=== PATIENT | female | born 1945 | race Caucasian/White ===

== ENCOUNTER 2017-06-07 16:42 | Inpatient (IN) | payer MEDICARE ==
[~2017-06-07] VITALS: Ht 160 cm; Wt 80.7 kg
[2017-06-07] MEDS ORDERED: IPRATROPIUM/ALBUTEROL SULFATE 3 ML SOLUTION IH ONE (17:02)
[2017-06-07] MEDS ORDERED: METHYLPREDNISOLONE SOD SUCC 125MG/2ML VIAL ONE (17:03)
[2017-06-07] MEDS ORDERED: ASPIRIN 81MG TAB.CHEW ONE (17:03)
[2017-06-07 17:07] LABS: BASOPHILS % (AUTO) 0.2 % (0.0-5.0); EOSINOPHILS % (AUTO) 0.1 % (0.0-8.0); HEMATOCRIT 52.7 % (36-48); LYMPHOCYTES % (AUTO) 5.1 % (21.0-51.0); MEAN CORPUSCULAR HEMOGLOBIN 29.8 pg (27.0-33.0); MONOCYTES % (AUTO) 7.2 % (3.0-13.0); NEUTROPHILS % (AUTO) 87.4 % (40.0-77.0); NUCLEATED RED BLOOD CELLS 0.1 % (0.0-0.19); PLATELET COUNT (AUTO) 335 K/uL (130-400); RED BLOOD CELL COUNT(AUTO) 5.67 MIL/uL (4.00-5.50); RED CELL DISTRIBUTION WIDTH 15.9 % (11.0-15.5); WHITE BLOOD COUNT (AUTO) 6.8 K/uL (4.8-10.8)
[2017-06-07 17:16] LABS: ABG BASE EXCESS -1.6 mmol/L (-2.0-3.0); ABG HCO3 29.2 mmol/L (21.0-28.0); ABG OXYGEN SATURATION 99.5 % (95.0-99.0); ABG PCO2 80 mmHg (32-45)
[2017-06-07 17:18] LABS: CARBON DIOXIDE 29 mmol/L (21-32); CHLORIDE 98 mmol/L (101-111); CREATININE 0.9 mg/dL (0.5-1.5); GLOMERULAR FILTR. RATE CALC 66 mL/min (>60); GLUCOSE,RANDOM 150 mg/dL (70-105); POTASSIUM 5.9 mmol/L (3.5-5.1); SODIUM SERUM 131 mmol/L (136-145); UREA NITROGEN, BLOOD 24 mg/dL (7-18)
[2017-06-07 17:20] LABS: INR 1.22 (0.85-1.15); PROTHROMBIN TIME 12.8 SEC (9.6-11.6)
[2017-06-07 17:37] LABS: ALANINE AMINOTRANSFERASE 85 U/L (12-78); ALBUMIN 2.3 g/dL (3.5-5.0); ASPARTATE AMINOTRANSFERASE 40 U/L (10-37); BILIRUBIN,TOTAL 0.4 mg/dL (0.2-1.0); CREATINE KINASE MB 1.2 ng/mL (0.5-3.6); CREATINE KINASE, TOTAL 39 U/L (21-232); MYOGLOBIN 53 ng/mL (10-92); TOTAL PROTEIN, SERUM 7.7 g/dL (6.0-8.3); TROPONIN I < 0.04 ng/mL (0.00-0.06)
[2017-06-07 18:06] LABS: APPEARANCE,URINE Cloudy (CLEAR); BILIRUBIN,URINE Small (NEGATIVE); COLOR,URINE Dark Yellow (YELLOW); GLUCOSE, URINE (UA) Negative (NEGATIVE); KETONES,URINE Negative (NEGATIVE); LEUKOCYTE ESTERASE ,URINE Negative (NEGATIVE); NITRATE,URINE Negative (NEGATIVE); OCCULT BLOOD,URINE Trace (NEGATIVE); PROTEIN,URINE POS 1+ (NEGATIVE)
[2017-06-07 18:14] LABS: BACTERIA,URINE Many /HPF (None Seen); RBC,URINE 0-1 /HPF (0-1); WBC,URINE 0-1 /HPF (0-1)
[2017-06-07 18:15] LABS: HYALINE CASTS, URINE 0-1 /LPF (0-1 /LPF)
[2017-06-07] MEDS ORDERED: FUROSEMIDE 10 MG/ML 4ML VIAL ONE (19:14)
[2017-06-07] MEDS ORDERED: AZITHROMYCIN 500MG+NS 250ML 250 ML IV ONE (19:50)
[2017-06-07] MEDS ORDERED: LEVOFLOXACIN 500 MG/D5W 100 ML 100 ML ONE (19:50)
[2017-06-07] MEDS ORDERED: LEVOFLOXACIN 500 MG/D5W 100 ML 100 ML IV SCH (21:15)
[2017-06-07] MEDS ORDERED: ACETAMINOPHEN 325 MG TAB PO PRN (21:15)
[2017-06-07] MEDS: METHYLPREDNISOLONE SOD SUCC 125MG/2ML VIAL IVP SCH (21:15)
[2017-06-07] MEDS ORDERED: ONDANSETRON HCL 4 MG/2 ML VIAL IV PRN (21:15)
[2017-06-07] MEDS ORDERED: AZITHROMYCIN 500MG+NS 250ML 250 ML IV SCH (21:15)
[2017-06-07] MEDS ORDERED: MORPHINE SULFATE 2 MG/ML 1ML SYG IV PRN (21:15)
[2017-06-07] MEDS ORDERED: METHYLPREDNISOLONE SOD SUCC 40MG/ML 1ML ONE (21:50)
[2017-06-07] MEDS ORDERED: VANCOMYCIN PROTOCOL PER PHARMACY IV SCH (23:15)
[2017-06-07] MEDS ORDERED: PHARMACY COMMUNICATION MISC SCH (23:30)
[2017-06-07] MEDS: MEROPENEM 1 GM VIAL IVP SCH (23:30)
[2017-06-07] MEDS ORDERED: MEROPENEM 1 GM VIAL ONE (23:42)
[2017-06-07] MEDS ORDERED: WATER FOR INJECTION,STERILE 20 ML VIAL ONE (23:43)
[2017-06-08] VITALS (11 sets, daily range): BP systolic 96–140; BP diastolic 47–104
[2017-06-08] MEDS ORDERED: VANCOMYCIN 2 GM in SODIUM CHLORIDE 0.9% 500ML 500 ML IV SCH ×2
[2017-06-08] MEDS: IPRATROPIUM/ALBUTEROL SULFATE 3 ML SOLUTION IH SCH ×5 (00:08→23:08)
[2017-06-08] MEDS ORDERED: MORPHINE SULFATE 2 MG/ML 1ML SYG ONE ×2 (00:27→05:12)
[2017-06-08] MEDS ORDERED: METHYLPREDNISOLONE SOD SUCC 125MG/2ML VIAL ONE (05:12)
[2017-06-08] MEDS: METHYLPREDNISOLONE SOD SUCC 125MG/2ML VIAL IVP SCH ×3 (05:15→22:02)
[2017-06-08 06:17] LABS: BASOPHILS % (AUTO) 0.1 % (0.0-5.0); EOSINOPHILS % (AUTO) 0.1 % (0.0-8.0); HEMATOCRIT 51.4 % (36-48); LYMPHOCYTES % (AUTO) 2.6 % (21.0-51.0); MEAN CORPUSCULAR HEMOGLOBIN 29.8 pg (27.0-33.0); MEAN CORPUSCULAR HGB CONC 31.4 g/dL (32.0-36.0); MEAN CORPUSCULAR VOLUME 94.8 fL (79-99); MONOCYTES % (AUTO) 1.3 % (3.0-13.0); NEUTROPHILS % (AUTO) 95.9 % (40.0-77.0); NUCLEATED RED BLOOD CELLS 0.1 % (0.0-0.19); PLATELET COUNT (AUTO) 361 K/uL (130-400); RED BLOOD CELL COUNT(AUTO) 5.43 MIL/uL (4.00-5.50); WHITE BLOOD COUNT (AUTO) 8.7 K/uL (4.8-10.8)
[2017-06-08 06:32] LABS: ALBUMIN 2.3 g/dL (3.5-5.0); BILIRUBIN,TOTAL 0.4 mg/dL (0.2-1.0); CREATININE 1.2 mg/dL (0.5-1.5); MAGNESIUM 2.2 mg/dL (1.80-2.40); PHOSPHORUS 5.9 mg/dL (2.5-4.9); POTASSIUM 5.7 mmol/L (3.5-5.1); TOTAL PROTEIN, SERUM 7.4 g/dL (6.0-8.3)
[2017-06-08] MEDS ORDERED: COMPOUND IV REFRIGERATED 1 EACH IVSOLN MISC PRN (06:45)
[2017-06-08] MEDS ORDERED: IPRATROPIUM/ALBUTEROL SULFATE 3 ML SOLUTION IH ONE (06:46)
[2017-06-08 07:11] LABS: B-TYPE NATRIURETIC PEPTIDE 2870 pg/mL (0-100)
[2017-06-08 07:25] LABS: ABG BASE EXCESS -3.4 mmol/L (-2.0-3.0); ABG HCO3 28.1 mmol/L (21.0-28.0); ABG PCO2 85 mmHg (32-45)
[2017-06-08 07:34] LABS: BAND NEUTROPHILS % (MANUAL) 1 % (0-2); LYMPHOCYTES % (MANUAL) 1 % (22-44); MAN.DIFF COMMENT-IMPRESSION MANUAL DIFFERENTIAL; PLATELET MORPHOLOGY COMMENT ADEQUATE; SEGMENTED NEUTROPHILS % 98 % (40-70)
[2017-06-08] MEDS: FUROSEMIDE 10 MG/ML 4ML VIAL IVP SCH ×2 (09:04→22:02)
[2017-06-08] MEDS: VANCOMYCIN 1.25 GM in SODIUM CHLORIDE 0.9% 250 ML IV SCH (09:05)
[2017-06-08] MEDS: MEROPENEM 1 GM VIAL IVP SCH ×2 (11:13→22:21)
[2017-06-08] MEDS: ENOXAPARIN SODIUM 40 MG/0.4 ML SYRINGE SQ SCH (13:34)
[2017-06-08] MEDS: SODIUM POLYSTYRENE SULFONATE 15 GM/60 ML ML PO SCH (13:34)
[2017-06-08] MEDS: LEVOFLOXACIN 500 MG/D5W 100 ML 100 ML IV SCH (16:32)
[2017-06-08] MEDS: BUDESONIDE 0.5 MG/2 ML INH IH SCH (19:21)
[2017-06-08] MEDS: OSELTAMIVIR PHOSPHATE 75 MG CAP PO SCH (22:02)
[2017-06-09] VITALS (7 sets, daily range): BP systolic 99–127; BP diastolic 52–78
[2017-06-09 04:12] LABS: ABG BASE EXCESS 3.5 mmol/L (-2.0-3.0); ABG HCO3 33.7 mmol/L (21.0-28.0); ABG OXYGEN SATURATION 92.6 % (95.0-99.0); ABG PCO2 79 mmHg (32-45)
[2017-06-09 04:37] LABS: HEMATOCRIT 48.4 % (36-48); MEAN CORPUSCULAR VOLUME 93.7 fL (79-99); NUCLEATED RED BLOOD CELLS 0.1 % (0.0-0.19); PLATELET COUNT (AUTO) 297 K/uL (130-400); RED BLOOD CELL COUNT(AUTO) 5.17 MIL/uL (4.00-5.50); RED CELL DISTRIBUTION WIDTH 15.7 % (11.0-15.5); WHITE BLOOD COUNT (AUTO) 6.8 K/uL (4.8-10.8)
[2017-06-09] MEDS: METHYLPREDNISOLONE SOD SUCC 125MG/2ML VIAL IVP SCH ×3 (05:09→21:52)
[2017-06-09 05:14] LABS: ALBUMIN 2.2 g/dL (3.5-5.0); BILIRUBIN,TOTAL 0.4 mg/dL (0.2-1.0); CREATININE 1.2 mg/dL (0.5-1.5); PHOSPHORUS 4.7 mg/dL (2.5-4.9); POTASSIUM 4.6 mmol/L (3.5-5.1); TOTAL PROTEIN, SERUM 6.9 g/dL (6.0-8.3)
[2017-06-09] MEDS: IPRATROPIUM/ALBUTEROL SULFATE 3 ML SOLUTION IH SCH ×3 (06:04→18:40)
[2017-06-09] MEDS: VANCOMYCIN 1.25 GM in SODIUM CHLORIDE 0.9% 250 ML IV SCH (06:45)
[2017-06-09] MEDS: OSELTAMIVIR PHOSPHATE 75 MG CAP PO SCH ×2 (08:35→21:52)
[2017-06-09] MEDS: FUROSEMIDE 10 MG/ML 4ML VIAL IVP SCH ×2 (08:35→21:52)
[2017-06-09] MEDS: ENOXAPARIN SODIUM 40 MG/0.4 ML SYRINGE SQ SCH (08:41)
[2017-06-09] MEDS: MEROPENEM 1 GM VIAL IVP SCH (11:30)
[2017-06-09] MEDS ORDERED: ASPI-1005 PO (12:27)
[2017-06-09] MEDS: SODIUM POLYSTYRENE SULFONATE 15 GM/60 ML ML PO SCH (13:00)
[2017-06-09] MEDS: LEVOFLOXACIN 500 MG/D5W 100 ML 100 ML IV SCH (17:20)
[2017-06-09] MEDS: BUDESONIDE 0.5 MG/2 ML INH IH SCH (19:06)
[2017-06-10] VITALS (15 sets, daily range): BP systolic 91–119; BP diastolic 36–61
[2017-06-10] MEDS: MEROPENEM 1 GM VIAL IVP SCH ×3 (00:01→22:19)
[2017-06-10] MEDS: IPRATROPIUM/ALBUTEROL SULFATE 3 ML SOLUTION IH SCH ×5 (00:44→23:48)
[2017-06-10 05:05] LABS: ABG BASE EXCESS 7.5 mmol/L (-2.0-3.0); ABG HCO3 36.8 mmol/L (21.0-28.0); ABG OXYGEN SATURATION 91.4 % (95.0-99.0); ABG PCO2 74 mmHg (32-45)
[2017-06-10] MEDS: METHYLPREDNISOLONE SOD SUCC 125MG/2ML VIAL IVP SCH ×3 (05:15→21:06)
[2017-06-10] MEDS: BUDESONIDE 0.5 MG/2 ML INH IH SCH ×2 (06:11→20:18)
[2017-06-10] MEDS: VANCOMYCIN 1.25 GM in SODIUM CHLORIDE 0.9% 250 ML IV SCH (06:43)
[2017-06-10 07:34] LABS: HEMATOCRIT 49.6 % (36-48); MEAN CORPUSCULAR HEMOGLOBIN 29.8 pg (27.0-33.0); NUCLEATED RED BLOOD CELLS 0.1 % (0.0-0.19); PLATELET COUNT (AUTO) 258 K/uL (130-400); RED BLOOD CELL COUNT(AUTO) 5.33 MIL/uL (4.00-5.50); RED CELL DISTRIBUTION WIDTH 15.5 % (11.0-15.5); WHITE BLOOD COUNT (AUTO) 6.6 K/uL (4.8-10.8)
[2017-06-10 07:43] LABS: CREATININE 0.9 mg/dL (0.5-1.5); MAGNESIUM 1.8 mg/dL (1.80-2.40); PHOSPHORUS 3.9 mg/dL (2.5-4.9); POTASSIUM 4.5 mmol/L (3.5-5.1)
[2017-06-10] MEDS: OSELTAMIVIR PHOSPHATE 75 MG CAP PO SCH ×2 (08:45→21:06)
[2017-06-10] MEDS: FUROSEMIDE 10 MG/ML 4ML VIAL IVP SCH ×2 (08:46→21:06)
[2017-06-10] MEDS: ENOXAPARIN SODIUM 40 MG/0.4 ML SYRINGE SQ SCH (08:46)
[2017-06-10] MEDS: SODIUM POLYSTYRENE SULFONATE 15 GM/60 ML ML PO SCH (13:00)
[2017-06-10] MEDS: NYSTATIN 30 GM CREAM.GM. TP SCH ×3 (13:00→22:21)
[2017-06-10] MEDS: LEVOFLOXACIN 500 MG/D5W 100 ML 100 ML IV SCH (15:49)
[2017-06-10] MEDS: NOREPINEPHRINE 4MG/NS 250ML 250 ML IV SCH ×2 (18:20→18:36)
[2017-06-11] VITALS (17 sets, daily range): BP systolic 92–118; BP diastolic 42–88
[2017-06-11 04:25] LABS: ABG BASE EXCESS 11.7 mmol/L (-2.0-3.0); ABG HCO3 40.2 mmol/L (21.0-28.0); ABG OXYGEN SATURATION 89.3 % (95.0-99.0); ABG PCO2 70 mmHg (32-45)
[2017-06-11 04:35] LABS: HEMOGLOBIN A1C 6.9 % (4.0-6.0)
[2017-06-11 04:45] LABS: CREATININE 0.8 mg/dL (0.5-1.5); POTASSIUM 4.3 mmol/L (3.5-5.1)
[2017-06-11] MEDS: METHYLPREDNISOLONE SOD SUCC 125MG/2ML VIAL IVP SCH ×3 (05:56→21:16)
[2017-06-11] MEDS: NOREPINEPHRINE 4MG/NS 250ML 250 ML IV SCH (05:58)
[2017-06-11] MEDS: VANCOMYCIN 1.25 GM in SODIUM CHLORIDE 0.9% 250 ML IV SCH (07:00)
[2017-06-11] MEDS: IPRATROPIUM/ALBUTEROL SULFATE 3 ML SOLUTION IH SCH ×4 (07:04→23:29)
[2017-06-11] MEDS: BUDESONIDE 0.5 MG/2 ML INH IH SCH ×2 (07:20→18:45)
[2017-06-11] MEDS: OSELTAMIVIR PHOSPHATE 75 MG CAP PO SCH ×2 (08:24→21:15)
[2017-06-11] MEDS: ENOXAPARIN SODIUM 40 MG/0.4 ML SYRINGE SQ SCH (09:02)
[2017-06-11] MEDS: NYSTATIN 30 GM CREAM.GM. TP SCH ×4 (09:03→21:22)
[2017-06-11] MEDS: FUROSEMIDE 10 MG/ML 4ML VIAL IVP SCH ×2 (09:03→21:22)
[2017-06-11] MEDS ORDERED: VANCOMYCIN 1GM+NS 250ML 250 ML IV SCH (10:23)
[2017-06-11] MEDS: HONEY 1 APPL/ML TUBE TP SCH (11:19)
[2017-06-11] MEDS: MEROPENEM 1 GM VIAL IVP SCH ×2 (12:39→23:30)
[2017-06-11] MEDS: LEVOFLOXACIN 500 MG/D5W 100 ML 100 ML IV SCH (14:51)
[2017-06-11] MEDS: VANCOMYCIN 500MG+NS 100ML 100 ML IV SCH (21:15)
[2017-06-12 03:57] VITALS: BP 101/52
[2017-06-12] MEDS: METHYLPREDNISOLONE SOD SUCC 125MG/2ML VIAL IVP SCH ×3 (04:29→21:01)
[2017-06-12 04:32] LABS: HEMATOCRIT 51.3 % (36-48); MEAN CORPUSCULAR HEMOGLOBIN 30.1 pg (27.0-33.0); MEAN CORPUSCULAR HGB CONC 32.5 g/dL (32.0-36.0); MEAN CORPUSCULAR VOLUME 92.7 fL (79-99); PLATELET COUNT (AUTO) 270 K/uL (130-400); RED BLOOD CELL COUNT(AUTO) 5.54 MIL/uL (4.00-5.50); RED CELL DISTRIBUTION WIDTH 15.8 % (11.0-15.5); WHITE BLOOD COUNT (AUTO) 6.3 K/uL (4.8-10.8)
[2017-06-12 04:34] LABS: CREATININE 0.9 mg/dL (0.5-1.5); POTASSIUM 4.1 mmol/L (3.5-5.1)
[2017-06-12 05:18] LABS: BAND NEUTROPHILS % (MANUAL) 9 % (0-2); BASOPHILS % (MANUAL) 3 % (0-2); LYMPHOCYTES % (MANUAL) 17 % (22-44); MAN.DIFF COMMENT-IMPRESSION MANUAL DIFFERENTIAL; MONOCYTES % (MANUAL) 2 % (2-9); PLATELET MORPHOLOGY COMMENT ADEQUATE; SEGMENTED NEUTROPHILS % 69 % (40-70)
[2017-06-12] MEDS: BUDESONIDE 0.5 MG/2 ML INH IH SCH ×2 (06:40→18:51)
[2017-06-12] MEDS: IPRATROPIUM/ALBUTEROL SULFATE 3 ML SOLUTION IH SCH ×4 (06:40→23:26)
[2017-06-12 07:00] VITALS: BP 127/70
[2017-06-12 07:25] LABS: ABG BASE EXCESS 17.8 mmol/L (-2.0-3.0); ABG HCO3 48.1 mmol/L (21.0-28.0); ABG OXYGEN SATURATION 94.3 % (95.0-99.0); ABG PCO2 85 mmHg (32-45)
[2017-06-12] MEDS ORDERED: HONEY 1 APPL/ML TUBE TP SCH (09:00)
[2017-06-12] MEDS: VANCOMYCIN 500MG+NS 100ML 100 ML IV SCH (09:03)
[2017-06-12] MEDS: FUROSEMIDE 10 MG/ML 4ML VIAL IVP SCH ×2 (09:04→21:01)
[2017-06-12] MEDS: OSELTAMIVIR PHOSPHATE 75 MG CAP PO SCH ×2 (09:04→21:01)
[2017-06-12] MEDS: ENOXAPARIN SODIUM 40 MG/0.4 ML SYRINGE SQ SCH (09:08)
[2017-06-12] MEDS: NYSTATIN 30 GM CREAM.GM. TP SCH ×4 (09:09→21:04)
[2017-06-12] MEDS: HONEY 1 APPL/ML TUBE TP SCH (09:09)
[2017-06-12 11:00] VITALS: BP 116/51
[2017-06-12 16:00] VITALS: BP 111/47
[2017-06-12] MEDS: LEVOFLOXACIN 500 MG/D5W 100 ML 100 ML IV SCH (16:39)
[2017-06-12] MEDS ORDERED: GLUCAGON 1MG KIT 1 MG ML IM PRN (17:15)
[2017-06-12] MEDS ORDERED: DEXTROSE 50%-WATER 50 ML DISP.SYRIN IV PRN (17:15)
[2017-06-12 19:56] VITALS: BP 129/85
[2017-06-12] MEDS: LORAZEPAM 1 MG TABLET PO PRN (21:01)
[2017-06-12] MEDS: INSULIN HUMULIN R 100 UNIT/ML 3ML SQ SCH (21:02)
[2017-06-13] VITALS: BP 103/50
[2017-06-13 04:00] VITALS: BP 104/53
[2017-06-13] MEDS: METHYLPREDNISOLONE SOD SUCC 125MG/2ML VIAL IVP SCH ×3 (04:21→20:33)
[2017-06-13] MEDS: INSULIN HUMULIN R 100 UNIT/ML 3ML SQ SCH ×4 (06:13→20:39)
[2017-06-13] MEDS: IPRATROPIUM/ALBUTEROL SULFATE 3 ML SOLUTION IH SCH ×4 (06:37→23:33)
[2017-06-13] MEDS: BUDESONIDE 0.5 MG/2 ML INH IH SCH ×2 (06:37→18:49)
[2017-06-13 07:41] VITALS: BP 105/57
[2017-06-13] MEDS: FUROSEMIDE 10 MG/ML 4ML VIAL IVP SCH ×2 (08:37→20:33)
[2017-06-13] MEDS: OSELTAMIVIR PHOSPHATE 75 MG CAP PO SCH (08:37)
[2017-06-13] MEDS: HONEY 1 APPL/ML TUBE TP SCH (08:38)
[2017-06-13] MEDS: NYSTATIN 30 GM CREAM.GM. TP SCH ×4 (08:38→20:33)
[2017-06-13] MEDS: ENOXAPARIN SODIUM 40 MG/0.4 ML SYRINGE SQ SCH (08:38)
[2017-06-13] MEDS: LEVOFLOXACIN 500 MG/D5W 100 ML 100 ML IV SCH (08:39)
[2017-06-13 11:00] VITALS: BP 115/64
[2017-06-13 16:42] VITALS: BP 108/52
[2017-06-13 19:33] VITALS: BP 112/61
[2017-06-13] MEDS: LORAZEPAM 1 MG TABLET PO PRN (19:54)
[2017-06-14] VITALS (8 sets, daily range): BP systolic 92–134; BP diastolic 43–76
[2017-06-14] MEDS: ACETAMINOPHEN 325 MG TAB PO PRN (02:18)
[2017-06-14] MEDS: METHYLPREDNISOLONE SOD SUCC 125MG/2ML VIAL IVP SCH ×3 (04:29→21:27)
[2017-06-14 04:57] LABS: HEMATOCRIT 55.3 % (36-48); MEAN CORPUSCULAR HEMOGLOBIN 29.4 pg (27.0-33.0); NUCLEATED RED BLOOD CELLS 0.1 % (0.0-0.19); PLATELET COUNT (AUTO) 195 K/uL (130-400); RED BLOOD CELL COUNT(AUTO) 6.01 MIL/uL (4.00-5.50); RED CELL DISTRIBUTION WIDTH 15.6 % (11.0-15.5); WHITE BLOOD COUNT (AUTO) 17.7 K/uL (4.8-10.8)
[2017-06-14] MEDS: LORAZEPAM 1 MG TABLET PO PRN (05:00)
[2017-06-14 05:13] LABS: CREATININE 0.9 mg/dL (0.5-1.5); POTASSIUM 4.2 mmol/L (3.5-5.1)
[2017-06-14 05:21] LABS: B-TYPE NATRIURETIC PEPTIDE 772 pg/mL (0-100)
[2017-06-14] MEDS: IPRATROPIUM/ALBUTEROL SULFATE 3 ML SOLUTION IH SCH ×4 (06:16→23:12)
[2017-06-14] MEDS: BUDESONIDE 0.5 MG/2 ML INH IH SCH ×2 (06:16→18:51)
[2017-06-14] MEDS: INSULIN HUMULIN R 100 UNIT/ML 3ML SQ SCH ×4 (06:35→21:00)
[2017-06-14] MEDS: FUROSEMIDE 10 MG/ML 4ML VIAL IVP SCH ×2 (09:34→21:27)
[2017-06-14] MEDS: HONEY 1 APPL/ML TUBE TP SCH (09:34)
[2017-06-14] MEDS: ENOXAPARIN SODIUM 40 MG/0.4 ML SYRINGE SQ SCH (09:34)
[2017-06-14] MEDS: LEVOFLOXACIN 500 MG/D5W 100 ML 100 ML IV SCH (09:34)
[2017-06-14] MEDS: NYSTATIN 30 GM CREAM.GM. TP SCH ×4 (09:34→21:27)
[2017-06-14] MEDS ORDERED: MAGNESIUM CITRATE 296 ML SOLUTION PO SCH (15:00)
[2017-06-14] MEDS ORDERED: IOPAMIDOL-370 100 ML VIAL IV ONE (17:29)
[2017-06-15] MEDS: LORAZEPAM 1 MG TABLET PO PRN (00:10)
[2017-06-15] MEDS: ACETAMINOPHEN 325 MG TAB PO PRN (00:42)
[2017-06-15 03:56] VITALS: BP 108/65
[2017-06-15 05:04] LABS: BASOPHILS % (AUTO) 0.3 % (0.0-5.0); HEMATOCRIT 54.9 % (36-48); LYMPHOCYTES % (AUTO) 1.5 % (21.0-51.0); MEAN CORPUSCULAR HEMOGLOBIN 29.9 pg (27.0-33.0); MEAN CORPUSCULAR HGB CONC 32.5 g/dL (32.0-36.0); MEAN CORPUSCULAR VOLUME 92.1 fL (79-99); MONOCYTES % (AUTO) 3.4 % (3.0-13.0); NEUTROPHILS % (AUTO) 94.8 % (40.0-77.0); PLATELET COUNT (AUTO) 155 K/uL (130-400); RED BLOOD CELL COUNT(AUTO) 5.96 MIL/uL (4.00-5.50); RED CELL DISTRIBUTION WIDTH 15.9 % (11.0-15.5)
[2017-06-15 05:18] LABS: ABG BASE EXCESS 36.7 mmol/L (-2.0-3.0); ABG HCO3 69.5 mmol/L (21.0-28.0); ABG OXYGEN SATURATION 92.2 % (95.0-99.0); ABG PCO2 100 mmHg (32-45)
[2017-06-15 05:18] LABS: ALBUMIN 2.2 g/dL (3.5-5.0); BILIRUBIN,TOTAL 1.4 mg/dL (0.2-1.0); CREATININE 0.8 mg/dL (0.5-1.5); MAGNESIUM 2.5 mg/dL (1.80-2.40); PHOSPHORUS 4.6 mg/dL (2.5-4.9); POTASSIUM 3.9 mmol/L (3.5-5.1); TOTAL PROTEIN, SERUM 6.2 g/dL (6.0-8.3)
[2017-06-15] MEDS: METHYLPREDNISOLONE SOD SUCC 125MG/2ML VIAL IVP SCH ×3 (05:22→20:44)
[2017-06-15] MEDS: IPRATROPIUM/ALBUTEROL SULFATE 3 ML SOLUTION IH SCH ×4 (06:06→23:37)
[2017-06-15] MEDS: BUDESONIDE 0.5 MG/2 ML INH IH SCH ×2 (06:07→18:46)
[2017-06-15] MEDS: INSULIN HUMULIN R 100 UNIT/ML 3ML SQ SCH ×4 (06:14→20:47)
[2017-06-15 07:30] VITALS: BP 113/48
[2017-06-15] MEDS: FUROSEMIDE 10 MG/ML 4ML VIAL IVP SCH (08:47)
[2017-06-15] MEDS: LEVOFLOXACIN 500 MG/D5W 100 ML 100 ML IV SCH (08:47)
[2017-06-15] MEDS: ENOXAPARIN SODIUM 40 MG/0.4 ML SYRINGE SQ SCH (08:48)
[2017-06-15] MEDS: NYSTATIN 30 GM CREAM.GM. TP SCH ×4 (08:49→20:44)
[2017-06-15] MEDS: HONEY 1 APPL/ML TUBE TP SCH (08:49)
[2017-06-15 11:32] VITALS: BP 121/52
[2017-06-15 16:29] VITALS: BP 126/57
[2017-06-15 17:35] LABS: ABG BASE EXCESS 29.6 mmol/L (-2.0-3.0); ABG HCO3 59.6 mmol/L (21.0-28.0); ABG OXYGEN SATURATION 90.5 % (95.0-99.0); ABG PCO2 80 mmHg (32-45)
[2017-06-15 19:46] VITALS: BP 114/64
[2017-06-15 23:42] VITALS: BP 98/57
[2017-06-16 03:55] VITALS: BP 113/52
[2017-06-16 04:34] LABS: ABG BASE EXCESS 31.2 mmol/L (-2.0-3.0); ABG HCO3 61.9 mmol/L (21.0-28.0); ABG OXYGEN SATURATION 87.2 % (95.0-99.0); ABG PCO2 84 mmHg (32-45)
[2017-06-16 04:38] LABS: HEMATOCRIT 54.2 % (36-48); MEAN CORPUSCULAR HGB CONC 32.4 g/dL (32.0-36.0); MEAN CORPUSCULAR VOLUME 92.6 fL (79-99); PLATELET COUNT (AUTO) 141 K/uL (130-400); RED BLOOD CELL COUNT(AUTO) 5.86 MIL/uL (4.00-5.50); RED CELL DISTRIBUTION WIDTH 16.1 % (11.0-15.5); WHITE BLOOD COUNT (AUTO) 15.8 K/uL (4.8-10.8)
[2017-06-16 04:56] LABS: CREATININE 0.9 mg/dL (0.5-1.5); POTASSIUM 3.9 mmol/L (3.5-5.1)
[2017-06-16] MEDS: METHYLPREDNISOLONE SOD SUCC 125MG/2ML VIAL IVP SCH ×3 (05:35→20:45)
[2017-06-16] MEDS: INSULIN HUMULIN R 100 UNIT/ML 3ML SQ SCH ×4 (05:57→20:44)
[2017-06-16] MEDS: IPRATROPIUM/ALBUTEROL SULFATE 3 ML SOLUTION IH SCH ×3 (05:58→18:11)
[2017-06-16] MEDS: BUDESONIDE 0.5 MG/2 ML INH IH SCH ×2 (06:18→18:36)
[2017-06-16 07:45] VITALS: BP 115/71
[2017-06-16] MEDS: LEVOFLOXACIN 500 MG/D5W 100 ML 100 ML IV SCH (10:06)
[2017-06-16] MEDS: NYSTATIN 30 GM CREAM.GM. TP SCH ×4 (10:07→20:46)
[2017-06-16] MEDS: HONEY 1 APPL/ML TUBE TP SCH (10:07)
[2017-06-16] MEDS: ENOXAPARIN SODIUM 40 MG/0.4 ML SYRINGE SQ SCH (10:07)
[2017-06-16 12:20] VITALS: BP 102/59
[2017-06-16 16:27] VITALS: BP 103/64
[2017-06-16 19:54] VITALS: BP 112/47
[2017-06-17] VITALS: BP 98/47
[2017-06-17] MEDS: IPRATROPIUM/ALBUTEROL SULFATE 3 ML SOLUTION IH SCH ×5 (00:27→23:57)
[2017-06-17 04:00] VITALS: BP 104/54
[2017-06-17] MEDS: METHYLPREDNISOLONE SOD SUCC 125MG/2ML VIAL IVP SCH ×3 (05:18→20:46)
[2017-06-17] MEDS: INSULIN HUMULIN R 100 UNIT/ML 3ML SQ SCH ×4 (06:18→20:50)
[2017-06-17] MEDS: BUDESONIDE 0.5 MG/2 ML INH IH SCH ×2 (06:39→19:20)
[2017-06-17 07:00] VITALS: BP 96/55
[2017-06-17] MEDS: LEVOFLOXACIN 500 MG/D5W 100 ML 100 ML IV SCH (09:02)
[2017-06-17] MEDS: ENOXAPARIN SODIUM 40 MG/0.4 ML SYRINGE SQ SCH (09:03)
[2017-06-17] MEDS: NYSTATIN 30 GM CREAM.GM. TP SCH ×4 (09:03→20:46)
[2017-06-17] MEDS: HONEY 1 APPL/ML TUBE TP SCH (09:03)
[2017-06-17 11:00] VITALS: BP 119/72
[2017-06-17 16:00] VITALS: BP 106/60
[2017-06-17 19:48] VITALS: BP 100/53
[2017-06-18] VITALS: BP 95/53
[2017-06-18 04:00] VITALS: BP 105/56
[2017-06-18] MEDS: METHYLPREDNISOLONE SOD SUCC 125MG/2ML VIAL IVP SCH ×2 (05:08→13:15)
[2017-06-18] MEDS: IPRATROPIUM/ALBUTEROL SULFATE 3 ML SOLUTION IH SCH ×3 (06:19→18:41)
[2017-06-18] MEDS: BUDESONIDE 0.5 MG/2 ML INH IH SCH ×2 (06:30→19:01)
[2017-06-18] MEDS: INSULIN HUMULIN R 100 UNIT/ML 3ML SQ SCH ×3 (06:47→16:30)
[2017-06-18 07:43] VITALS: BP 104/58
[2017-06-18] MEDS: NYSTATIN 30 GM CREAM.GM. TP SCH ×3 (09:00→17:00)
[2017-06-18] MEDS: LORAZEPAM 1 MG TABLET PO PRN (11:14)
[2017-06-18] MEDS: LEVOFLOXACIN 500 MG/D5W 100 ML 100 ML IV SCH (11:16)
[2017-06-18] MEDS: ACETAMINOPHEN 325 MG TAB PO PRN (11:16)
[2017-06-18 11:17] VITALS: BP 107/69
[2017-06-18] MEDS: ENOXAPARIN SODIUM 40 MG/0.4 ML SYRINGE SQ SCH (11:19)
[2017-06-18] MEDS: HONEY 1 APPL/ML TUBE TP SCH (11:20)
[2017-06-18 16:23] VITALS: BP 101/49
[2017-06-18 19:41] VITALS: BP 96/62
== END 2017-06-18 22:30 | disposition hospice, home (50) | DRG 871 ==
LOC: EDH 16:42 → EDHIP 19:25 → 2CH 06-08 07:23 → 2DH 06-12 16:27
PROVIDERS: ADMIT Family Medicine; ATTEND Family Medicine
PROC: 5A09357 Assistance with Respiratory Ventilation, Less than 24 Consecutive Hours, Continuous Positive Airway Pressure (ICD-10-PCS; principal; 2017-06-08)
PROC: 5A09357 Assistance with Respiratory Ventilation, Less than 24 Consecutive Hours, Continuous Positive Airway Pressure (ICD-10-PCS; 2017-06-09)
PROC: 5A09357 Assistance with Respiratory Ventilation, Less than 24 Consecutive Hours, Continuous Positive Airway Pressure (ICD-10-PCS; 2017-06-10)
PROC: 5A09357 Assistance with Respiratory Ventilation, Less than 24 Consecutive Hours, Continuous Positive Airway Pressure (ICD-10-PCS; 2017-06-11)
PROC: 5A09457 Assistance with Respiratory Ventilation, 24-96 Consecutive Hours, Continuous Positive Airway Pressure (ICD-10-PCS; 2017-06-13)
PROC: 0HBRXZZ Excision of Toe Nail, External Approach (ICD-10-PCS; 2017-06-13)
PROC: 0HBRXZZ Excision of Toe Nail, External Approach (ICD-10-PCS; 2017-06-13)
PROC: 0HBRXZZ Excision of Toe Nail, External Approach (ICD-10-PCS; 2017-06-13)
PROC: 0HBRXZZ Excision of Toe Nail, External Approach (ICD-10-PCS; 2017-06-13)
PROC: 0HBRXZZ Excision of Toe Nail, External Approach (ICD-10-PCS; 2017-06-13)
PROC: 0HBRXZZ Excision of Toe Nail, External Approach (ICD-10-PCS; 2017-06-13)
PROC: 0HBRXZZ Excision of Toe Nail, External Approach (ICD-10-PCS; 2017-06-13)
DX: A41.9 Sepsis, unspecified organism (principal); J18.9 Pneumonia, unspecified organism; J96.21 Acute and chronic respiratory failure with hypoxia; R65.21 Severe sepsis with septic shock; G93.41 Metabolic encephalopathy; E46 Unspecified protein-calorie malnutrition; E11.622 Type 2 diabetes mellitus with other skin ulcer; R13.10 Dysphagia, unspecified; J96.22 Acute and chronic respiratory failure with hypercapnia; E87.2 Acidosis; E87.4 Mixed disorder of acid-base balance; E66.2 Morbid (severe) obesity with alveolar hypoventilation; L03.115 Cellulitis of right lower limb; J44.0 Chronic obstructive pulmonary disease with (acute) lower respiratory infection; L03.116 Cellulitis of left lower limb; J44.1 Chronic obstructive pulmonary disease with (acute) exacerbation; L97.919 Non-pressure chronic ulcer of unspecified part of right lower leg with unspecified severity; L97.929 Non-pressure chronic ulcer of unspecified part of left lower leg with unspecified severity; I27.81 Cor pulmonale (chronic); B35.1 Tinea unguium; Z66 Do not resuscitate; E87.5 Hyperkalemia; E87.70 Fluid overload, unspecified; F17.200 Nicotine dependence, unspecified, uncomplicated; F41.9 Anxiety disorder, unspecified; I83.019 Varicose veins of right lower extremity with ulcer of unspecified site; I83.029 Varicose veins of left lower extremity with ulcer of unspecified site; I87.2 Venous insufficiency (chronic) (peripheral); I87.8 Other specified disorders of veins; I89.0 Lymphedema, not elsewhere classified; L60.0 Ingrowing nail; L60.2 Onychogryphosis; L85.3 Xerosis cutis; T50.2X5A Adverse effect of carbonic-anhydrase inhibitors, benzothiadiazides and other diuretics, initial encounter; Z51.5 Encounter for palliative care; Z68.31 Body mass index [BMI] 31.0-31.9, adult; Z88.2 Allergy status to sulfonamides; Z91.018 Allergy to other foods; Z86.73 Personal history of transient ischemic attack (TIA), and cerebral infarction without residual deficits; Z91.14 Patient's other noncompliance with medication regimen; Z91.19 Patient's noncompliance with other medical treatment and regimen
CPT/HCPCS: 36415; 36600; 71045; 80048; 80053; 80202; 81001; 82550; 82553; 82803; 82948; 83036; 83605; 83735; 83874; 83880; 84100; 84132; 84484; 85007; 85025; 85027; 85378; 85610; 85730; 87040; 87088; 87186; 87804; 93005; 93306; 93970; 94640; 94660; 94664; 97039; A4218; A6234; J0456; J1650; J1815; J1940; J1956; J2185; J2405; J2920; J2930; J3370; J3490; J7030; J7040; Q9967